=== PATIENT | male | born 1940 | race Caucasian/White ===

== ENCOUNTER 2020-01-16 10:27 | Day surgery (SDC) | payer MEDICARE ==
[~2020-01-16] VITALS: Ht 177.8 cm; Wt 83.4 kg
[2020-01-16] MEDS ORDERED: BUPIVACAINE/PF 0.5% ONE (10:53)
[2020-01-16] MEDS ORDERED: EPINEPHRINE 1 MG/ML, 1ML ONE (10:53)
[2020-01-16] MEDS ORDERED: CHLORHEXIDINE 15 ML UDC ONE (10:55)
[2020-01-16] MEDS ORDERED: FINA5TAB4 PO (10:59)
[2020-01-16] MEDS ORDERED: PARO30TA3 PO (10:59)
[2020-01-16] MEDS ORDERED: ACETAMINOPHEN 500 MG TABLET PO ONE (11:00)
[2020-01-16] MEDS ORDERED: CHLORHEXIDINE 15 ML UDC MM ONE (11:00)
[2020-01-16 11:02] VITALS: BP 110/68
[2020-01-16] MEDS ORDERED: FENTANYL PF 250 MCG/5ML ONE (11:02)
[2020-01-16] MEDS: LACTATED RINGERS 1,000 ML IV SCH ×2 (11:07→11:09)
[2020-01-16] MEDS ORDERED: MEPERIDINE/PF 25MG/0.5ML IVPush PRN (11:30)
[2020-01-16] MEDS ORDERED: ONDANSETRON 2MG/ML, 2ML IVPush PRN (11:30)
[2020-01-16] MEDS ORDERED: LABETALOL 5MG/ML, 20ML IV PRN (11:30)
[2020-01-16] MEDS ORDERED: PROMETHAZINE 25 MG/ML, 1ML IVPush PRN (11:30)
[2020-01-16] MEDS ORDERED: FENTANYL PF 100 MCG/2ML IV PRN (11:30)
[2020-01-16] MEDS ORDERED: OXYcodone 5 MG/5 ML ORAL.SOL UDC PO PRN (11:30)
[2020-01-16] MEDS ORDERED: EPHEDRINE 50 MG/ML, 1ML IVPush PRN (11:30)
[2020-01-16] MEDS ORDERED: HYDROmorphone 1 MG/ML, 1ML INJ IVPush PRN (11:30)
[2020-01-16] MEDS ORDERED: hydrALAzine 20 MG/ML, 1ML IV PRN (11:30)
[2020-01-16] MEDS ORDERED: KETOROLAC 30 MG/1 ML ONE (11:37)
[2020-01-16] MEDS ORDERED: PHENYLEPHRINE 10 MG/ML ONE (11:37)
[2020-01-16] MEDS ORDERED: EPHEDRINE 50 MG/ML, 1ML ONE (11:49)
[2020-01-16] MEDS ORDERED: SUGAMMADEX 200 MG/2 ML IVPush ONE (11:58)
[2020-01-16] MEDS ORDERED: LIDOCAINE-MPF 2% ,5ML ONE (11:58)
[2020-01-16] MEDS ORDERED: PROPOFOL 10 MG/ML, 20ML ONE (11:59)
[2020-01-16] MEDS ORDERED: ROCURONIUM 10MG/ML,5ML ONE (11:59)
[2020-01-16] MEDS ORDERED: CEFAZOLIN 1,000 MG ONE (11:59)
[2020-01-16] MEDS ORDERED: DEXAMETHASONE 4 MG/ML, 1ML ONE (11:59)
[2020-01-16] MEDS ORDERED: SUCCINYLCHOLINE 20 MG/ML, 10ML ONE (11:59)
[2020-01-16] MEDS ORDERED: ONDANSETRON 2MG/ML, 2ML ONE (11:59)
== END 2020-01-16 14:50 | disposition home or self-care (01) ==
LOC: OUT 10:27
PROVIDERS: ATTEND Student in an Organized Health Care Education/Training Program
DX: K40.90 Unilateral inguinal hernia, without obstruction or gangrene, not specified as recurrent (principal); K42.9 Umbilical hernia without obstruction or gangrene; N40.0 Benign prostatic hyperplasia without lower urinary tract symptoms; K21.9 Gastro-esophageal reflux disease without esophagitis; F32.9 Major depressive disorder, single episode, unspecified; F41.9 Anxiety disorder, unspecified; G47.33 Obstructive sleep apnea (adult) (pediatric); F17.210 Nicotine dependence, cigarettes, uncomplicated; Z86.73 Personal history of transient ischemic attack (TIA), and cerebral infarction without residual deficits; Z79.899 Other long term (current) drug therapy; Z72.89 Other problems related to lifestyle; Z90.49 Acquired absence of other specified parts of digestive tract; Z20.828 Contact with and (suspected) exposure to other viral communicable diseases; Z98.890 Other specified postprocedural states
CPT/HCPCS: 36415; 49585; 49650; 87635; 93005; C1781; J0171; J0330; J0690; J1100; J1885; J2370; J2405; J2704; J3010; J7120